=== PATIENT | male | born 1985 | race Caucasian/White ===

== ENCOUNTER 2018-07-25 09:25 | Emergency (ER) | payer OTHER ==
[2018-07-25 09:32] VITALS: BP 122/73
[2018-07-25] MEDS ORDERED: IBUPROFEN 800 MG TABLET PO ONE (10:16)
[2018-07-25] MEDS ORDERED: LIDOCAINE 5% (700 MG) TRANSDERMAL ADH..PATCH TP ONE (10:16)
--- NOTE | 2018-07-25 10:17 | ER Document Report ---
HPI - HPI Patient complains to provider of: Left rib pain Time Seen by Provider: 07/25/18 10:03 Onset: Other - And days Onset/Duration: Persistent Quality of pain: Achy Pain Level: 4 Context: Patient states that he was leaning against a ladder and and felt a pop to the rib area. Patient states that yesterday he was attempting to lift a table up and had an increased pain to the lateral rib area. Patient denies any cough or cold symptoms. Patient denies any fever. Associated Symptoms: Other - Left rib pain Exacerbated by: Movement, Deep breathing Relieved by: Denies Similar symptoms previously: No Recently seen / treated by doctor: No - ROS ROS below otherwise negative: Yes Systems Reviewed and Negative: Yes All other systems reviewed and negative - NEURO Neurology: DENIES: Weakness - RESPIRATORY Respiratory: DENIES: Trouble Breathing, Coughing Notes: Left rib tenderness - GASTROINTESTINAL Gastrointestinal: DENIES: Abdominal Pain, Nausea, Patient vomiting - MUSCULOSKELETAL Musculoskeletal: DENIES: Extremity pain, Back Pain - DERM Skin Color: Normal Skin Problems: None Past Medical History - General Information source: Patient - Social History Smoking Status: Current Every Day Smoker Smoking Education Provided: Yes Frequency of alcohol use: None Drug Abuse: None Occupation: Construction Family History: Reviewed & Not Pertinent Psychiatric Medical History: Reports: Hx Anxiety, Hx Post Traumatic Stress Disorder Traumatic Medical History: Reports: Hx Traumatic Brain Injury Past Surgical History: Reports: Hx Orthopedic Surgery Vertical Provider Document - CONSTITUTIONAL Agree With Documented VS: Yes Exam Limitations: No Limitations General Appearance: WD/WN, No Apparent Distress - INFECTION CONTROL TRAVEL OUTSIDE OF THE [place] IN LAST 30 DAYS: No - HEENT HEENT: Atraumatic, Normocephalic - NECK Neck: Normal Inspection - RESPIRATORY Respiratory: Breath Sounds Normal, No Respiratory Distress. negative: Chest Non -Tender - Left lateral lower costal tenderness with palpation and deep inspiration. No subcutaneous emphysema, no ecchymosis or swelling, Rales, Rhonchi, Wheezing - CARDIOVASCULAR Cardiovascular: Regular Rate, Regular Rhythm, No Murmur - GI/ABDOMEN Gastrointestinal: Abdomen Soft, Abdomen Non-Tender, No Organomegaly, Normal Bowel Sounds - BACK Back: Normal Inspection - MUSCULOSKELETAL/EXTREMETIES Musculoskeletal/Extremeties: MAEW, FROM - NEURO Level of Consciousness: Awake, Alert, Appropriate Motor/Sensory: No Motor Deficit - DERM Integumentary: Warm, Dry, No Rash Course - Re-evaluation Re-evalutation: 07/25/18 11:14 Patient's respirations even and unlabored, patient nontoxic in appearance. No concern for pneumothorax or pneumonia at this time. Discussed concern about possible rib fracture with patient, good pulmonary toilet discussed. Return precautions given. Patient stable for discharge at this time. - Vital Signs Vital signs: Temp Pulse Resp BP Pulse Ox 97.6 F 75 16 122/73 97 07/25/18 09:31 07/25/18 09:31 07/25/18 09:31 07/25/18 09:31 07/25/18 09:31 - Diagnostic Test Radiology reviewed: Reports reviewed Discharge - Discharge Clinical Impression: Left rib fracture Qualifiers: Encounter type: initial encounter Rib fracture type: single rib Fracture type: closed Qualified Code(s): S22.32XA - Fracture of one rib, left side, initial encounter for closed fracture Condition: Stable Disposition: HOME, SELF-CARE Instructions: Oral Narcotic Medication ([facility]), Rib Injuries and Fractures ([facility]) Additional Instructions: Return immediately for any new or worsening symptoms Followup with your primary care provider, call tomorrow to make a followup appointment Be sure to take good full deep breaths at least hourly to fully inflate lungs to prevent risk of developing pneumonia. Return immediately for any worsening pain or shortness of breath, fever, abdominal pain or any concerning symptoms Prescriptions: Hydrocodone/Acetaminophen [Hammond 5-325 mg Tablet] 1 tab PO Q6 PRN #15 tablet PRN Reason: Forms: Smoking Cessation Education, Return to Work Referrals: MERISSA HIGUERA MD [NO LOCAL MD] - Follow up as needed [facility] [Provider Group] - Follow up tomorrow
--- NOTE | 2018-07-25 10:51 | RADIOLOGY REPORT (SQ) ---
EXAM DESCRIPTION: RIBS LEFT W/PA CHEST COMPLETED DATE/TIME: 07/25/2018 10:40 am REASON FOR STUDY: left rib injury COMPARISON: None. TECHNIQUE: Frontal view of the chest and additional views of the left ribs acquired. NUMBER OF VIEWS: PA chest Left rib detail five views LIMITATIONS: None. FINDINGS: FRONTAL CXR: No pneumothorax. No pleural effusion. No atelectasis or infiltrates. Cardi ac silhouette size, sergei unremarkable RIBS: Buckling of the cortex along the left lateral 11th rib worrisome for acute fracture marked wit h a [place] on rib detail films. No lytic or blastic bony lesions. OTHER: No other significant finding. IMPRESSION: NO PNEUMOTHORAX. Buckling of the cortex along the left lateral 11th rib worrisome for a cute fracture marked with a [place] on rib detail films. COMMENT: SITE OF TRAUMA/COMPLAINT MARKED/STAMP COMPLETED: Yes TECHNICAL DOCUMENTATION: JOB ID: [id number] [employer]- All Rights Reserved Reading location - IP/workstation name: [email or web address]
== END 2018-07-25 11:25 | disposition home or self-care (01) ==
LOC: ER 09:25
DX: S22.32XA Fracture of one rib, left side, initial encounter for closed fracture (principal); R07.81 Pleurodynia; X58.XXXA Exposure to other specified factors, initial encounter; F17.200 Nicotine dependence, unspecified, uncomplicated; Z87.820 Personal history of traumatic brain injury
CPT/HCPCS: 99283